=== PATIENT | male | born 1965 | race Caucasian/White ===

== ENCOUNTER 2018-07-27 12:10 | Inpatient (IN) ==
[2018-07-27] MEDS ORDERED: Isovue-370 500 ML BOTTLE IVP ONE (12:33)
[2018-07-27] MEDS ORDERED: 0.9 % Sodium Chloride 1,000 ML IVC ONE (12:34)
--- NOTE | 2018-07-27 12:39 | Emergency Department Note ---
Disposition Clinical Impression: Atrial fibrillation with RVR, Cough, Diverticulosis of colon Abdominal pain Qualifiers: Abdominal location: unspecified location Qualified Code(s): R10.9 - Unspecified abdominal pain Disposition: Admitted As Inpatient Condition: Fair Referrals: Daniel Zavala MD [Primary Care Provider] - Forms: ED Satisfaction Letter Time of Disposition: 15:02 General Adult HPI - General Chief complaint: ED Shortness of Breath/Dyspnea Stated complaint: A-fib Time Seen by Provider: 07/27/18 12:20 Source: patient, family Mode of arrival: ambulatory Limitations: no limitations Nursing Notes Reviewed: Yes Vital Signs Reviewed: Yes - History of Present Illness HPI Narrative: 53-year-old male with a history of hypertension presents for evaluation of A. fib. Patient states he been feeling short of breath with a nonproductive cough for the past 5 weeks. States he did see his primary care doctor 3 days ago and was prescribed prednisone antibiotics and a cough medicine. States that it did not seem to improve his symptoms. Patient does note dyspnea at rest and with exertion. Patient denies any palpitations or chest pain. No history of any known coronary artery disease. Patient also noted some lower abdominal pain started this morning. Patient has been having some diarrhea but no constipation. No nausea vomiting. Family states that the patient does get diaphoretic at times out of the blue. Patient is not any blood thinners. Pain Scale: 5 - Related Data Previous Rx's Medication Instructions Recorded Cephalexin [Keflex] 500 mg PO QID #40 capsule 09/06/17 Ibuprofen [Motrin] 800 mg PO Q8HR PRN #20 tablet 09/06/17 Mupirocin [Bactroban Oint] 22 appl TP BID #1 tube 09/06/17 Cetirizine HCl [Zyrtec] 10 mg PO QDPC #30 tablet 01/13/18 Levofloxacin [Levaquin] 750 mg PO QDPC #7 tablet 01/13/18 Allergies Allergy/AdvReac Type Severity Reaction Status Date / Time lisinopril AdvReac Cough Verified 01/13/18 10:49 All systems ED: reviewed and negative except as stated. Constitutional: Denies: fever Cardiovascular: Denies: chest pain Respiratory: Reports: cough, dyspnea. Denies: wheezes Gastrointestinal: Reports: abdominal pain, diarrhea. Denies: nausea, vomiting Past Medical History - Past Medical History Source: patient Medical history: Reports: hypertension Psychiatric history: Reports: no psych history - Social History Smoking Status: Never smoker Smokeless Tobacco Status: No Alcohol use: Reports: none Drug use: Reports: none Physical Exam - General Limitations: no limitations General appearance: alert, in no apparent distress - Head Head exam: atraumatic, normocephalic, normal inspection - Eye Eye exam: Present: normal appearance, PERRL, EOMI - ENT ENT exam: normal exam, mucous membranes moist - Neck Neck exam: Present: normal inspection - Chest Chest inspection: Present: normal inspection, symmetric chest wall rise - Respiratory Respiratory exam: Present: normal lung sounds bilaterally. Absent: respiratory distress - Cardiovascular Cardiovascular exam: Present: tachycardia, irregular rhythm. Absent: normal heart sounds - Abdominal Exam Abdominal exam: Present: soft, tenderness. Absent: guarding, rebound - Extremities Exam Extremities exam: Present: normal inspection. Absent: pedal edema - Back Exam Back exam: Present: normal inspection - Neurological Exam Neurological exam: Present: alert, oriented X3, CN II-XII intact - Skin Skin exam: Present: warm, dry, intact, normal color Course Course Narrative: Patient presents in A. fib RVR with a preserved blood pressure. Patient has no formal history of this. Patient will get rate controlled basic cardio pulmonary screening labs. Patient also get a CT of the chest abdomen pelvis given his history of recent travel as well as pain above and below the diaphragm. More concerned of PE then aortic dissection. - Reevaluation(s) Reevaluation #1: Patient's heart rate improved during the ED course. Time: 15:00 Vital Signs Temperature 98.0 F 07/27/18 12:14 Pulse Rate 155 07/27/18 12:14 Respiratory Rate 18 07/27/18 12:14 Blood Pressure 140/84 07/27/18 12:14 O2 Sat by Pulse Oximetry 98 07/27/18 12:14 Temperature 98.0 F 07/27/18 12:14 Pulse Rate 123 07/27/18 14:21 Respiratory Rate 21 07/27/18 14:21 Blood Pressure 114/97 07/27/18 14:21 O2 Sat by Pulse Oximetry 95 07/27/18 14:21 Oxygen Delivery Oxygen Delivery Room Air Medical Decision Making - [facility] Narrative Medical decision making narrative: Patient presented for concerns of cough and dyspnea. On exam the patient was found to be new onset A. fib RVR. Patient's been having a productive cough over the past 5 weeks. Patient also been feeling short of breath. Concerns that the cough may be secondary to early heart failure. Patient heart was controlled with diltiazem. Patient is also complaining of some lower abdominal pain with a nonsurgical abdomen. Patient CT scan of the chest abdomen pelvis was obtained which shows no evidence of dissection or PE. Also no evidence of any acute surgical pathology. Patient pain was treated. Patient was given potassium supplementation as well as magnesium. - Lab Data Lab results reviewed: Yes I reviewed the patient's lab results. Result diagrams: 07/27/18 12:28 07/27/18 12:28 Lab Results 07/27/18 07/27/18 07/27/18 Range/Units 12:28 12:28 12:28 WBC 12.3 H (4.3-11.1) K/mcL RBC 4.98 (4.19-5.50) M/mcL Hgb 14.5 (12.9-16.9) g/dL Hct 44.4 (37.5-50.1) % MCV 89.2 (83.0-100.0) fL MCH 29.1 (28.0-33.3) pg MCHC 32.7 (31.6-35.5) g/dL RDW 13.0 (11.5-14.5) % Plt Count 185 (140-400) K/mcL MPV 12.0 (9.4-12.4) fL Immature Gran % 0.5 (0-4) % Seg Neutrophils % 76.3 % Lymphocytes % 16.2 % Monocytes % 6.4 % Eosinophils % 0.3 % Basophils % 0.3 % Neutrophils # 9.4 H (1.6-8.9) K/mcL Lymphocytes # 2.0 (0.6-4.6) K/mcL Monocytes # 0.8 (0.0-1.3) K/mcL Eosinophils # 0.0 (0.0-0.6) K/mcL Basophils # 0.0 (0.0-0.2) K/mcL Sodium 141 (136-145) mEq/L Potassium 3.2 L (3.5-5.1) mEq/L Chloride 105 (98-107) mEq/L Carbon Dioxide 24 (23-29) mEq/L BUN 11 (6-20) mg/dL Creatinine 1.10 (0.70-1.30) mg/dL Est GFR ( Amer) > 60 (> 60) Est GFR (Non-Af Amer) > 60 (> 60) BUN/Creatinine Ratio 10 (6-26) Glucose 184 H (70-105) mg/dL Calculated Osmolality 296 (280-300) Lactic Acid (0.5-2.2) mmol/L Calcium 9.1 (8.6-10.3) mg/dL Total Bilirubin 0.8 (0.3-1.0) mg/dL Direct Bilirubin 0.3 H (0.0-0.2) mg/dL Indirect Bilirubin 0.5 (0.0-1.2) mg/dL AST 22 (13-39) Units/L ALT 28 (7-52) Units/L Alkaline Phosphatase 52 (34-104) Units/L Troponin I < 0.03 (< 0.04) ng/mL B-Natriuretic Peptide 305 H (Less than 100) pg/mL Serum Total Protein 7.1 (6.4-8.9) g/dL Albumin 4.3 (3.5-5.7) g/dL Globulin 2.8 (2.4-3.5) g/dL Albumin/Globulin Ratio 1.5 (1.1-2.2) TSH 1.867 (0.340-5.600) mcIU/mL Urine Color (Yellow) Urine Clarity (Clear) Urine pH (5.0-8.0) pH Units Ur Specific [place] (1.010-1.025) Urine Protein (Neg-Trace) mg/dL Urine Glucose (UA) (Normal) mg/dL Urine Ketones (Negative) mg/dL Urine Blood (Negative) Urine Nitrite (Negative) Urine Bilirubin (Negative) Urine Urobilinogen (Normal) mg/dL Ur Leukocyte Esterase (Negative) 07/27/18 07/27/18 07/27/18 Range/Units 12:50 13:20 13:24 WBC (4.3-11.1) K/mcL RBC (4.19-5.50) M/mcL Hgb (12.9-16.9) g/dL Hct (37.5-50.1) % MCV (83.0-100.0) fL MCH (28.0-33.3) pg MCHC (31.6-35.5) g/dL RDW (11.5-14.5) % Plt Count (140-400) K/mcL MPV (9.4-12.4) fL Immature Gran % (0-4) % Seg Neutrophils % % Lymphocytes % % Monocytes % % Eosinophils % % Basophils % % Neutrophils # (1.6-8.9) K/mcL Lymphocytes # (0.6-4.6) K/mcL Monocytes # (0.0-1.3) K/mcL Eosinophils # (0.0-0.6) K/mcL Basophils # (0.0-0.2) K/mcL Sodium (136-145) mEq/L Potassium (3.5-5.1) mEq/L Chloride (98-107) mEq/L Carbon Dioxide (23-29) mEq/L BUN (6-20) mg/dL Creatinine (0.70-1.30) mg/dL Est GFR ( Amer) (> 60) Est GFR (Non-Af Amer) (> 60) BUN/Creatinine Ratio (6-26) Glucose (70-105) mg/dL Calculated Osmolality (280-300) Lactic Acid 1.9 1.4 (0.5-2.2) mmol/L Calcium (8.6-10.3) mg/dL Total Bilirubin (0.3-1.0) mg/dL Direct Bilirubin (0.0-0.2) mg/dL Indirect Bilirubin (0.0-1.2) mg/dL AST (13-39) Units/L ALT (7-52) Units/L Alkaline Phosphatase (34-104) Units/L Troponin I (< 0.04) ng/mL B-Natriuretic Peptide (Less than 100) pg/mL Serum Total Protein (6.4-8.9) g/dL Albumin (3.5-5.7) g/dL Globulin (2.4-3.5) g/dL Albumin/Globulin Ratio (1.1-2.2) TSH (0.340-5.600) mcIU/mL Urine Color Yellow (Yellow) Urine Clarity Clear (Clear) Urine pH 6.0 (5.0-8.0) pH Units Ur Specific [place] < 1.005 L (1.010-1.025) Urine Protein Negative (Neg-Trace) mg/dL Urine Glucose (UA) Normal (Normal) mg/dL Urine Ketones Negative (Negative) mg/dL Urine Blood Negative (Negative) Urine Nitrite Negative (Negative) Urine Bilirubin Negative (Negative) Urine Urobilinogen Normal (Normal) mg/dL Ur Leukocyte Esterase Negative (Negative) - Radiology Data Radiology results reviewed: Yes I reviewed the patient's radiology results. CT Dissection 07/27/18 12:33 IMPRESSION: 1. No CTA evidence of dissection or aneurysm. Unremarkable CTA appearance of the vasculature. 2. Mild hepatic steatosis. Borderline to mild hepatomegaly. 3. Status post cholecystectomy. 4. Diverticulosis coli without CT evidence of acute diverticulitis. D/ / Bert Pritchard / Bert Pritchard Interpreting Provider: Bert Pritchard - EKG Data EKG #1 EKG attestation: Yes I reviewed and interpreted this EKG. Rate: tachycardia Rhythm: A.Fib [place]/QRS: normal When compared to previous EKG there are: changes noted Interpretation: nonspecific ST-T wave changes Critical Care Time Critical Care Time: Yes Total Critical Care Time: 35 Attestation: Critical care time 35 minutes managing patient's A. fib with rapid ventricular response. Kimberley.[email or web address] - Too Situation: Demographics Background: Presenting Complaint Assessment: Vital Signs, Course and respsone to treatment, Patient/Family Expectation Recommendation: Barrier(s) to disposition, Recommendation based on pending studies, treatments, or consults S.B.AAravind Report Given to: Hospitalist Too Repor Time: 14:59 Attestation Statement - Attestation Attestation: Patient was seen with resident physician. I reviewed the history, physical, assessment and plan, and agree with the findings. I also personally evaluated this patient and had [id number] time with this patient. 53-year-old male with a history of hypertension presents to the emergency department with cough and shortness of breath for weeks. Said the cough is gotten worse over the last couple days. Ultimately he was seen by his primary care doctor who prescribed a steroid pack, but he is failed to improve so he came in for additional evaluation and treatment. Patient has no history of cardiac disease, but his brother recently had cardiac surgery. He is also had some chest pain with this again worse with inspiration. Midsternal. Denies fevers chills nausea vomiting. Review of systems as above remainder negative. ED course. Vital signs initially showed tachycardia with stable blood pressure. ENT is unremarkable. Heart tachycardic regular rhythm. Lungs mild crackles heard throughout with slight increased work of breathing. No chest wall pain. Abdomen soft nontender. Extremities unremarkable. Neurologically intact. Skin no rashes. Psych normal. ED course. Patient's rate will be controlled. We will get a CTA of the chest to rule out dissection PE or other abnormality. Also his BNP was elevated but probably has some CHF as a result of having been in A. fib for some time. I think that is ultimately was causing his cough 2. Once rate was under control and lab and workup is complete patient will be admitted to the hospital service for additional evaluation and treatment. Asians rate was better controlled with Cardizem drip as well as a bolus of Cardizem. It was still elevated more than not we will like. Dissection study was done and was negative. Once this was completed he was started on anticoagulant therapy. We discussed the case with the hospitalist. They agreed to accept the patient for admission to the hospital. Critical care time 35 minutes. Agree with resident physician assessment and plan. Agree with the resident physician assessment and plan.
[2018-07-27 13:01] LABS: Basophils % 0.3 %; Eosinophils % 0.3 %; Hematocrit 44.4 % (37.5-50.1); Hemoglobin 14.5 g/dL (12.9-16.9); Immature Granulocytes % 0.5 % (0-4); Lymphocytes % 16.2 %; Mean Corpuscular HGB Conc 32.7 g/dL (31.6-35.5); Mean Corpuscular Hemoglobin 29.1 pg (28.0-33.3); Mean Corpuscular Volume 89.2 fL (83.0-100.0); Monocytes # 0.8 K/mcL (0.0-1.3); Monocytes % 6.4 %; Neutrophils # 9.4 K/mcL (1.6-8.9); Platelet Count 185 K/mcL (140-400); Red Blood Count 4.98 M/mcL (4.19-5.50); Segmented Neutrophils % 76.3 %; White Blood Count 12.3 K/mcL (4.3-11.1)
[2018-07-27 13:07] LABS: Alanine Aminotransferase 28 Units/L (7-52); Albumin 4.3 g/dL (3.5-5.7); Albumin/Globulin Ratio 1.5 (1.1-2.2); Alkaline Phosphatase 52 Units/L (34-104); Aspartate Amino Transferase 22 Units/L (13-39); BUN/Creatinine Ratio 10 (6-26); Bilirubin,Direct 0.3 mg/dL (0.0-0.2); Bilirubin,Indirect 0.5 mg/dL (0.0-1.2); Bilirubin,Total 0.8 mg/dL (0.3-1.0); Blood Urea Nitrogen 11 mg/dL (6-20); Calcium 9.1 mg/dL (8.6-10.3); Carbon Dioxide 24 mEq/L (23-29); Chloride 105 mEq/L (98-107); Globulin 2.8 g/dL (2.4-3.5); Glucose 184 mg/dL (70-105); Osmolality,Calculated 296 (280-300); Potassium 3.2 mEq/L (3.5-5.1); Sodium 141 mEq/L (136-145); Total Protein 7.1 g/dL (6.4-8.9); Troponin I < 0.03 ng/mL (< 0.04); eGFR For African Americans > 60 (> 60); eGFR For Non-African Americans > 60 (> 60)
[2018-07-27 13:20] LABS: Thyroid Stimulating Hormone 1.867 mcIU/mL (0.340-5.600)
[2018-07-27] MEDS ORDERED: Potassium Chloride Elixir 20 MEQ/15 ML UDC PO ONE (13:42)
[2018-07-27] MEDS ORDERED: *HR* FentaNYL (PF) 100 MCG/2 ML VIAL IVP ONE (13:49)
[2018-07-27 13:53] LABS: Bilirubin,Urine Negative (Negative); Blood,Urine Negative (Negative); Clarity,Urine Clear (Clear); Color,Urine Yellow (Yellow); Glucose,Urine (UA) Normal (Normal); Ketones,Urine Negative (Negative); Leukocyte Esterase,Urine Negative (Negative); Nitrite,Urine Negative (Negative); Protein,Urine Negative (Neg-Trace); Specific Gravity,Urine < 1.005 (1.010-1.025); Urobilinogen,Urine Normal (Normal)
[2018-07-27] MEDS ORDERED: *HR* Heparin 5,000 UNIT/ML VIAL IVP PRN ×2 (14:57)
[2018-07-27] MEDS ORDERED: *HR* Heparin 5,000 UNIT/ML VIAL IVP ONE (14:57)
[2018-07-27] MEDS: Heparin 25,000 UNIT/250 ML D5W 25,000 UNIT/250 ML IV.SOLN IVC SCH (15:44)
[2018-07-27] MEDS ORDERED: Naloxone 0.4 MG/ML INJ IVP PRN (15:46)
[2018-07-27 15:54] LABS: Magnesium 1.9 mg/dL (1.6-2.6)
--- NOTE | 2018-07-27 17:11 | Internal Med History&Physical ---
Date of Encounter: 07/27/18 Time of Encounter: 17:00 Internal Medicine - H&P: HPI Chief complaint: Persistent coughing and shortness of breath for about 4 weeks History of present illness: Mr. Murguia is a 53 year old male with pmh of hypertension presenting with cough for about 5 weeks. Patient says he previously had a cough while on lisnopril, but has been switched to losartan and has been tolerating it since. But for the past 5 weeks, he has been having a non resolviong cough. He went to his PCP who gave him some antibiotics and cough medicine, but his cough hasn't improved. He went back to urgent care today, and he said they measures his heart rate told him it was fast, and they did an EKG and told him he had to come to the ER. He denies any chest pain, fevers, chills or any other acute symptoms In the ER, he was noted to be in afib with RVR in the 160s, and he was started on a cardizem drip and heparin drip. He has no previous history of afib. His HR is presently in the 100s- 130s. He is being admitted for further management Past Med Surg Social Fam HX - Past Medical History Medical history: hypertension Psychiatric history: no psych history - Past Surgical History Additional surgical history: knee - Social History Smoking Status: Never smoker Smokeless Tobacco Status: No Alcohol use: none Drug use: none Internal Medicine - H&P: Meds Cephalexin [Keflex] 500 mg PO QID #40 capsule 09/06/17 [Rx] Losartan Potassium 50 mg PO DAILY 07/27/18 [History] Allergy/AdvReac Type Severity Reaction Status Date / Time lisinopril AdvReac Cough Verified 01/13/18 10:49 All Systems PM: A 10-system review of systems was performed and is negative for pertinent findings except as documented above in the HPI. - Constitutional Constitutional: no chills, no fever(s), no night sweats - EENT Eyes: no change in vision, no discharge, no pain, no photophobia Ears: no ear discharge, no ear pain, no tinnitus Nose, mouth and throat: no dysphagia, no nasal discharge, no neck pain, no sore throat - Cardiovascular Cardiovascular ROS IM: dyspnea, irregular heart rhythm, no chest pain, no diaphoresis, no lightheadedness, no palpitations, no syncope - Respiratory Respiratory: no cough, no dyspnea, no wheezing, no excessive phlegm production - Gastrointestinal Gastrointestinal: no abdominal pain, no diarrhea, no hematemesis, no hematochezia, no melena, no nausea, no vomiting - Musculoskeletal Musculoskeletal ROS IM: no numbness, no tingling - Integumentary Integumentary IM: no rash, no unusual bruising - Neurological Neurological ROS: no confusion, no convulsions, no focal weakness, no numbness, no tingling, no tremor(s) - Hematologic/Lymphatic Hematologic/Lymphatic: no easy bruising - Constitutional Vitals: Temp Pulse Resp BP Pulse Ox 98.0 F 123 21 114/97 95 07/27/18 12:14 07/27/18 14:21 07/27/18 14:21 07/27/18 14:21 07/27/18 14:21 Exam: NAD - Head Head exam: Present: atraumatic, normocephalic - Eye Eye exam: Present: PERRL, conjuntiva pink, sclera anicteric Pupils: Present: PERRL - Neck Neck exam general surgery: Present: supple, trachea midline. Absent: lympha denopathy - Respiratory Respiratory exam: Present: CTAB. Absent: accessory muscle use, rales, rhonchi, wheezes - Cardiovascular Cardiovascular exam: Present: irregular rhythm, RRR, +S1, +S2, tachycardia. Absent: diastolic murmur, gallop, rubs, systolic murmur - GI/Abdominal GI/Abdominal exam: Present: normal bowel sounds, soft, no peritoneal signs. Absent: distended, tenderness - Extremities Exam Extremities exam: Present: warm, radial pulses palpable and symmetrical. Absent: calf tenderness, cyanotic, pedal edema - Neurological Exam Neurological exam: Present: CN II-XII intact, oriented X3, no focal deficits. Absent: pronater drift, facial droop, speech deficit - Skin Skin exam: Present: dry, intact Internal Med - H&P Results - Labs CBC & Chem 7: 07/27/18 12:28 07/27/18 12:28 Labs: Short CBC 07/27/18 Range/Units 12:28 WBC 12.3 H (4.3-11.1) K/mcL Hgb 14.5 (12.9-16.9) g/dL Hct 44.4 (37.5-50.1) % Plt Count 185 (140-400) K/mcL Neutrophils # 9.4 H (1.6-8.9) K/mcL BMP 07/27/18 12:28 Sodium 141 Potassium 3.2 L Chloride 105 Carbon Dioxide 24 BUN 11 Creatinine 1.10 Glucose 184 H Calcium 9.1 Cardiac Enzymes 07/27/18 Range/Units 12:28 Troponin I < 0.03 (< 0.04) ng/mL Liver Function 07/27/18 Range/Units 12:28 Total Bilirubin 0.8 (0.3-1.0) mg/dL Direct Bilirubin 0.3 H (0.0-0.2) mg/dL AST 22 (13-39) Units/L ALT 28 (7-52) Units/L Alkaline Phosphatase 52 (34-104) Units/L Albumin 4.3 (3.5-5.7) g/dL Urine 07/27/18 Range/Units 13:20 Urine Color Yellow (Yellow) Urine Clarity Clear (Clear) Urine pH 6.0 (5.0-8.0) pH Units Ur Specific [place] < 1.005 L (1.010-1.025) Urine Protein Negative (Neg-Trace) mg/dL Urine Glucose (UA) Normal (Normal) mg/dL - Impressions ITS Impressions CT Dissection 07/27/18 12:33 IMPRESSION: 1. No CTA evidence of dissection or aneurysm. Unremarkable CTA appearance of the vasculature. 2. Mild hepatic steatosis. Borderline to mild hepatomegaly. 3. Status post cholecystectomy. 4. Diverticulosis coli without CT evidence of acute diverticulitis. D/ / Bert Pritchard / Bert Pritchard Interpreting Provider: Bert Pritchard - Assessment and Plan (1) Atrial fibrillation with RVR Current Visit: Yes Status: Acute Assessment and plan: Pt comes in with new onset afib with RVR of unknown onset, probably for about 5 weeks Started on cardizem and heparin drip. Will add amiodarone drip to regimen, if rate stays uncontrolled Will obtain 2D echo. Cardiology consulted and appreciate recs Replace electrolytes and obtain TSH (2) Cough Current Visit: Yes Status: Acute Assessment and plan: Possibly ARB induced cough which occurs, even though it's low incidence. CT chest negative. Obtain resp panel Hold losartan (3) Hypertension Current Visit: Yes Status: Acute Assessment and plan: Hold losartan for now Qualifiers: Qualified Code(s): I10 - Essential (primary) hypertension (4) Hypokalemia Current Visit: Yes Status: Acute Assessment and plan: Replace potassium (5) DVT prophylaxis Current Visit: Yes Status: Acute Assessment and plan: On heparin drip - Time Spent With Patient Total time spent is greater than 50% in coordination of care (as documented) at patient's floor/unit and/or counseling patient:
[2018-07-27] MEDS: GuaiFENesin Liq 200 MG/10 ML UDC PO SCH (18:26)
[2018-07-27] MEDS: Benzonatate 100 MG CAPSULE PO PRN (21:40)
[2018-07-28] MEDS: GuaiFENesin Liq 200 MG/10 ML UDC PO SCH ×2 (00:41→06:12)
[2018-07-28] MEDS: Heparin 25,000 UNIT/250 ML D5W 25,000 UNIT/250 ML IV.SOLN IVC SCH ×2 (06:31→23:17)
[2018-07-28 06:42] LABS: Basophils % 0.4 %; Eosinophils # 0.1 K/mcL (0.0-0.6); Eosinophils % 0.8 %; Hematocrit 41.3 % (37.5-50.1); Hemoglobin 13.3 g/dL (12.9-16.9); Immature Granulocytes % 0.6 % (0-4); Lymphocytes # 2.4 K/mcL (0.6-4.6); Lymphocytes % 21.8 %; Mean Corpuscular HGB Conc 32.2 g/dL (31.6-35.5); Mean Corpuscular Hemoglobin 28.9 pg (28.0-33.3); Mean Corpuscular Volume 89.8 fL (83.0-100.0); Mean Platelet Volume 12.2 fL (9.4-12.4); Monocytes # 0.8 K/mcL (0.0-1.3); Monocytes % 7.6 %; Neutrophils # 7.5 K/mcL (1.6-8.9); Platelet Count 180 K/mcL (140-400); Red Cell Distribution Width 13.2 % (11.5-14.5); Segmented Neutrophils % 68.8 %; White Blood Count 10.9 K/mcL (4.3-11.1)
[2018-07-28 07:00] LABS: Magnesium 2.2 mg/dL (1.6-2.6); Phosphorous 4.5 mg/dL (2.7-4.5)
--- NOTE | 2018-07-28 07:38 | Internal Med Progress Note ---
Hospitalist Progress Note - Encounter Date of Encounter: 07/28/18 Time of Encounter: 07:30 - Subjective Interval History: Seen by cardiology this am - Exam Vitals: Temp Pulse Resp BP Pulse Ox 98.6 F 100 18 116/87 95 07/28/18 03:33 07/28/18 03:33 07/28/18 03:33 07/28/18 03:33 07/28/18 03:33 Exam: General appearance: Present: A&O X 3, no acute distress Head exam: Present: normocephalic Respiratory exam: Present: CTAB. Absent: accessory muscle use, rales, rhonchi, wheezes Cardiovascular exam:Irregularly irregular, tachycardic GI/Abdominal exam: Soft, NT, ND, +BS Extremities exam: Absent: pedal edema Neurological exam: Present: alert, oriented X3, no focal deficits. Absent: altered - Assessment and Plan (1) Atrial fibrillation with RVR Current Visit: Yes Status: Acute Assessment and Plan: Pt comes in with new onset afib with RVR of unknown onset, probably for about 5 weeks Started on cardizem and heparin drip. Will add amiodarone drip to regimen, if rate stays uncontrolled Will obtain 2D echo. Cardiology consulted and appreciate recs Replace electrolytes and obtain TSH 07/28. Seen by cardiology this am and received one digoxin Planned for cardioversion in am if he stays in afib. TSH WNL (2) Cough Current Visit: Yes Status: Acute Assessment and Plan: Possibly ARB induced cough which occurs, even though it's low incidence. CT ch est negative. Obtain resp panel Hold losartan (3) Hypertension Current Visit: Yes Status: Acute Assessment and Plan: Hold losartan for now (4) Hypokalemia Current Visit: Yes Status: Acute Assessment and Plan: Replace potassium (5) DVT prophylaxis Current Visit: Yes Status: Acute Assessment and Plan: On heparin drip - Time Spent with Patient Total time spent is greater than 50% in coordination of care (as documented) at patient's floor/unit and/or counseling patient: Internal Medicine: Result - Labs CBC & Chem 7: 07/28/18 06:18 07/27/18 21:56 Labs: Short CBC 07/27/18 07/28/18 Range/Units 12:28 06:18 WBC 12.3 H 10.9 (4.3-11.1) K/mcL Hgb 14.5 13.3 (12.9-16.9) g/dL Hct 44.4 41.3 (37.5-50.1) % Plt Count 185 180 (140-400) K/mcL Neutrophils # 9.4 H 7.5 (1.6-8.9) K/mcL BMP 07/27/18 07/27/18 12:28 21:56 Sodium 141 Potassium 3.2 L 3.4 L Chloride 105 Carbon Dioxide 24 BUN 11 Creatinine 1.10 Glucose 184 H Calcium 9.1 Cardiac Enzymes 07/27/18 Range/Units 12:28 Troponin I < 0.03 (< 0.04) ng/mL Liver Function 07/27/18 Range/Units 12:28 Total Bilirubin 0.8 (0.3-1.0) mg/dL Direct Bilirubin 0.3 H (0.0-0.2) mg/dL AST 22 (13-39) Units/L ALT 28 (7-52) Units/L Alkaline Phosphatase 52 (34-104) Units/L Albumin 4.3 (3.5-5.7) g/dL Urine 07/27/18 Range/Units 13:20 Urine Color Yellow (Yellow) Urine Clarity Clear (Clear) Urine pH 6.0 (5.0-8.0) pH Units Ur Specific [place] < 1.005 L (1.010-1.025) Urine Protein Negative (Neg-Trace) mg/dL Urine Glucose (UA) Normal (Normal) mg/dL - Impressions Impressions CT Dissection 07/27/18 12:33 IMPRESSION: 1. No CTA evidence of dissection or aneurysm. Unremarkable CTA appearance of the vasculature. 2. Mild hepatic steatosis. Borderline to mild hepatomegaly. 3. Status post cholecystectomy. 4. Diverticulosis coli without CT evidence of acute diverticulitis. D/ / Bert Pritchard / Bert Pritchard Interpreting Provider: Bert Pritchard Consult Discharge Plan - Plan Referrals: Daniel Zavala MD [Primary Care Provider] - ___ (3) Hypertension Qualifiers: Qualified Code(s): I10 - Essential (primary) hypertension
[2018-07-28] MEDS ORDERED: GuaiFENesin Liq 200 MG/10 ML UDC PO PRN (07:45)
--- NOTE | 2018-07-28 10:02 | Cardiology Consult Note ---
Date of Encounter: 07/28/18 Time of Encounter: 10:00 Assessment and Plan (1) Atrial fibrillation with RVR Current Visit: Yes Status: Acute CHADSvasc 1. Discussed A/R/B of NOAC/coumadin/aspirin with them and they are leaning towards taking NOAC. Continue heparin and cardizem. Add metoprolol if continued RVR and BP will tolerate. Possible DOMINICK/DCCV tomorrow if still in AF (2) Hypertension Current Visit: Yes Status: Acute controlled Qualifiers: Qualified Code(s): I10 - Essential (primary) hypertension Discussion w patient/family: The assessment and plan as outlined above was discussed with the patient and/or family members who expressed understanding and agreement. All questions were answered. Thank you for involving us in the care of your patient. Please call with any questions. History of Present Illness Consult date: 07/28/18 Consult reason: AF RVR Chief complaint: cough History of present illness: Mr. Murguia is a 53 year old male with no previous cardiac history presenting with unresolving dry cough for several weeks despite changing from lisinopril to ARB. He was seen in urgent care and found to have AF RVR on EKG admitted here started on cardizem and heparin. He notes dyspnea preceded the cough but is worse when coughing. He notes no palpitations, chest/jaw/arm discomfort or syncope. He does note daytime sleepiness and says he snores significantly at night. He was recently treated with keflex and steroids. Past Med Surg Social Fam HX - Past Medical History Medical history: hypertension Additional medical history: pneumonia Psychiatric history: no psych history - Past Surgical History Surgical History: cholecystectomy Additional surgical history: meniscus repair right knee - Social History Smoking Status: Never smoker Smokeless Tobacco Status: No Alcohol use: none Drug use: none - Family History Mother Hx Family Cardiac Disorders: Yes (HTN) Medications and Allergies Cephalexin [Keflex] 500 mg PO QID #40 capsule 09/06/17 [Rx] Losartan Potassium 50 mg PO DAILY 07/27/18 [History] Allergy/AdvReac Type Severity Reaction Status Date / Time lisinopril AdvReac Cough Verified 01/13/18 10:49 All Systems Review: The remainder of the systems were reviewed and are negative - Constitutional Constitutional: no chills, no fever(s) - EENT Eyes: no blurred vision, no loss of vision Nose, mouth and throat: no odynophagia, no throat swelling - Cardiovascular Cardiovascular: irregular heart rhythm, rapid heart rate - Respiratory Respiratory: cough, no hemoptysis, no wheezing - Gastrointestinal Gastrointestinal: no hematemesis, no hematochezia - Genitourinary Genitourinary: no hematuria, no nocturia - Musculoskeletal Musculoskeletal: no arthralgias, no myalgias - Integumentary Integumentary: no erythema, no unusual bruising - Neurological Neurological: no syncope, no tingling - Psychiatric Psychiatric: no hallucinations, no panic attacks - Hematological/Lymphatic Hematologic/Lymphatic: no easy bleeding, no easy bruising Physical Examination Vital Signs, Last 4 Hours Temp Pulse Resp BP Pulse Ox 07/28/18 07:47 98.5 F 97 16 112/78 94 General: Conversant HEENT: Atraumatic Neck: No JVD Cardiac: Other (irr irr s1 s2) Lungs: Other (bibasilar crackles) Neuro: Alert and responsive Abdomen: Soft Skin: No rashes noted on visualized skin Musculoskeletal: No Chest Wall Tenderness Extremities: No Edema Results 07/28/18 06:18 07/27/18 21:56 Lab Results 07/27/18 07/27/18 07/27/18 12:28 12:28 12:28 WBC 12.3 H Hgb 14.5 Hct 44.4 Plt Count 185 Sodium 141 Potassium 3.2 L Chloride 105 Carbon Dioxide 24 BUN 11 Creatinine 1.10 Glucose 184 H Calcium 9.1 Magnesium 1.9 Total Bilirubin 0.8 AST 22 ALT 28 Alkaline Phosphatase 52 Troponin I < 0.03 B-Natriuretic Peptide 305 H TSH 1.867 07/27/18 07/28/18 07/28/18 21:56 06:18 06:18 WBC 10.9 Hgb 13.3 Hct 41.3 Plt Count 180 Sodium Potassium 3.4 L Chloride Carbon Dioxide BUN Creatinine Glucose Calcium Magnesium 2.2 Total Bilirubin AST ALT Alkaline Phosphatase Troponin I B-Natriuretic Peptide TSH 07/28/18 06:18 WBC Hgb Hct Plt Count Sodium Potassium Chloride Carbon Dioxide BUN Creatinine Glucose Calcium Magnesium Total Bilirubin AST ALT Alkaline Phosphatase Troponin I B-Natriuretic Peptide 86 TSH - EKG Interpretation EKG results cardiology: personally reviewed (af rvr) Consult Discharge Plan - Plan Referrals: Daniel Zavala MD [Primary Care Provider] -
[2018-07-28] MEDS: GuaiFENesin/Dextromethorphan TABLET PO SCH ×2 (10:26→20:59)
[2018-07-28] MEDS ORDERED: *HR* Digoxin 0.5 MG/2 ML AMPUL IVP ONE (11:07)
[2018-07-28] MEDS: Benzonatate 100 MG CAPSULE PO PRN (17:02)
--- NOTE | 2018-07-28 23:02 | Electrocardiograph Report ---
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
[2018-07-29] MEDS: GuaiFENesin/Dextromethorphan TABLET PO SCH ×2 (07:55→21:10)
[2018-07-29 10:09] LABS: Basophils % 0.4 %; Eosinophils # 0.1 K/mcL (0.0-0.6); Eosinophils % 1.1 %; Hematocrit 42.9 % (37.5-50.1); Hemoglobin 14.1 g/dL (12.9-16.9); Immature Granulocytes % 0.6 % (0-4); Lymphocytes # 2.1 K/mcL (0.6-4.6); Lymphocytes % 21.7 %; Mean Corpuscular HGB Conc 32.9 g/dL (31.6-35.5); Mean Corpuscular Hemoglobin 29.4 pg (28.0-33.3); Mean Corpuscular Volume 89.4 fL (83.0-100.0); Mean Platelet Volume 11.8 fL (9.4-12.4); Monocytes # 0.7 K/mcL (0.0-1.3); Monocytes % 7.4 %; Neutrophils # 6.8 K/mcL (1.6-8.9); Platelet Count 185 K/mcL (140-400); Red Cell Distribution Width 13.1 % (11.5-14.5); Segmented Neutrophils % 68.8 %; White Blood Count 9.9 K/mcL (4.3-11.1)
--- NOTE | 2018-07-29 10:11 | Event Note ---
Date of Encounter: 07/29/18 Time of Encounter: 10:08 - Cardiology Event Note TTE resulted--Atrial fibrillation. HR 90s to 100s. LVEF 40-45%. Normal LV chamber size. Mild cLVH. Mild global LV systolic dysfunction. Indeterminate diastolic function. Normal RV structure and function. Mild-moderate MR. No evidence of phtn. 12 hr tele AVG HR 92 on cardizem gtt at 15mg/hr. Given mildly reduced EF, recommend DOMINICK/DCCV in attempt to restore SR. Suspect CMP is tachycardia induced. Discussed with Dr. Dumas. Will plan to recheck TTE as outpt once in SR before proceeding with ischemic eval. DOMINICK/DCCV today. R/B/A discussed and pt agrees to proceed. Will rivera check NOAC.
[2018-07-29 10:24] LABS: BUN/Creatinine Ratio 11 (6-26); Blood Urea Nitrogen 12 mg/dL (6-20); Calcium 9.2 mg/dL (8.6-10.3); Carbon Dioxide 26 mEq/L (23-29); Chloride 107 mEq/L (98-107); Glucose 101 mg/dL (70-105); Magnesium 2.2 mg/dL (1.6-2.6); Osmolality,Calculated 292 (280-300); Potassium 3.9 mEq/L (3.5-5.1); Sodium 141 mEq/L (136-145); eGFR For African Americans > 60 (> 60); eGFR For Non-African Americans > 60 (> 60)
[2018-07-29] MEDS ORDERED: 0.9 % Sodium Chloride 500 ML IVC ONE (10:47)
[2018-07-29] MEDS ORDERED: Lidocaine Viscous Oral Soln 15 ML SOLUTION MM PRN (10:47)
[2018-07-29] MEDS: *HR* Midazolam HCl 5 MG/5 ML VIAL IVP PRN ×2 (11:45→11:50)
[2018-07-29] MEDS: *HR* FentaNYL (PF) 100 MCG/2 ML VIAL IVP PRN ×2 (11:45→11:50)
--- NOTE | 2018-07-29 12:16 | Event Note ---
Date of Encounter: 07/29/18 Time of Encounter: 12:15 - Cardiology Event Note Heavy smoke in [place] visualized, at this point risk benefit favors holding off on DCCV. Will continue chronic AC and possible DCCV later if necessary (ie if cannot get rate controlled or severely limiting symptoms). Continue rate control strategy and heparin, transition to xarelto today.
--- NOTE | 2018-07-29 13:51 | Internal Med Progress Note ---
Hospitalist Progress Note - Encounter Date of Encounter: 07/29/18 Time of Encounter: 13:50 - Subjective Interval History: I have seen and evaluated the patient at bedside. Patient denies any complains. denies chest pain, shortness of breath or abdominal pain. reports a non- productive cough. denies diarrhea or abdominal pain. - Exam Vitals: Temp Pulse Resp BP Pulse Ox 97.7 F 72 18 118/82 92 07/29/18 11:26 07/29/18 12:30 07/29/18 12:30 07/29/18 12:30 07/29/18 11:26 Exam: Vitals: Reviewed General: Alert and oriented x4. In no distress Skin: Normal color, no rash, no lesions. HEENT: EOM, pupils equal, round and reactive. Cardiovascular: Irregularly, irregular, normal S1 & S2, no rubs, murmurs or gallops. Lungs: CTA b/l, no wheezes or crackles. Abdomen: Obese, soft, non-tender, no rigidity. Extremities: No edema. Neurological: Normal cognition and motor skills. Rest of the physical exam is non contributory - Assessment and Plan (1) Atrial fibrillation with RVR Current Visit: Yes Status: Acute Assessment and Plan: patient on a heparin drip. cardizem drip to titrate per protocol. started on diltiazem 360mg/PO daily per cardiology recommendations. metoprolol 25mg/PO daily. unable to undergo DCCV due to Heavy smoke in [place] visualized. cardiology recommendations appreciated. (2) Hypertension Current Visit: Yes Status: Chronic Assessment and Plan: BP is well controlled. Patient is on diltiazem and metoprolol. (3) Hypokalemia Current Visit: Yes Status: Resolved (4) Diverticulosis of colon Current Visit: Yes Status: Chronic DVT Prophylaxis: On a heparin drip. - Summary of Assessment and Plan Summary of Assessment and Plan: Patient to remain in the hospital due to A.fib with RvR on a cardizem drip. potential discharge tomorrow. - Time Spent with Patient Total time spent is greater than 50% in coordination of care (as documented) at patient's floor/unit and/or counseling patient: Greater than 35 minutes (40) Plan of Care Discussed with: patient (and the nurse.) Internal Medicine: Result - Labs CBC & Chem 7: 07/29/18 08:55 07/29/18 08:55 Labs: Short CBC 07/29/18 Range/Units 08:55 WBC 9.9 (4.3-11.1) K/mcL Hgb 14.1 (12.9-16.9) g/dL Hct 42.9 (37.5-50.1) % Plt Count 185 (140-400) K/mcL Neutrophils # 6.8 (1.6-8.9) K/mcL BMP 07/29/18 08:55 Sodium 141 Potassium 3.9 Chloride 107 Carbon Dioxide 26 BUN 12 Creatinine 1.10 Glucose 101 Calcium 9.2 Consult Discharge Plan - Plan Referrals: Daniel Zavala MD [Primary Care Provider] - 08/07/18 1:30 pm (2) Hypertension Qualifiers: Hypertension type: unspecified Qualified Code(s): I10 - Essential (primary) hypertension
[2018-07-29] MEDS: Diltiazem CD (24hr) 180 MG CAPSULE PO SCH (14:16)
[2018-07-29] MEDS: Metoprolol XL (24 HR) Succ 25 MG TAB.ER.24H PO SCH (14:16)
[2018-07-29] MEDS ORDERED: *HR* Rivaroxaban 10 MG TABLET PO SCH (17:00)
[2018-07-29] MEDS: Heparin 25,000 UNIT/250 ML D5W 25,000 UNIT/250 ML IV.SOLN IVC SCH (21:23)
[2018-07-30 04:59] LABS: Basophils % 0.2 %; Eosinophils # 0.1 K/mcL (0.0-0.6); Eosinophils % 1.2 %; Hematocrit 42.5 % (37.5-50.1); Hemoglobin 13.9 g/dL (12.9-16.9); Immature Granulocytes % 0.3 % (0-4); Lymphocytes # 1.7 K/mcL (0.6-4.6); Lymphocytes % 18.4 %; Mean Corpuscular HGB Conc 32.7 g/dL (31.6-35.5); Mean Corpuscular Hemoglobin 29.1 pg (28.0-33.3); Mean Corpuscular Volume 88.9 fL (83.0-100.0); Mean Platelet Volume 11.6 fL (9.4-12.4); Monocytes # 0.7 K/mcL (0.0-1.3); Monocytes % 8.2 %; Neutrophils # 6.5 K/mcL (1.6-8.9); Platelet Count 169 K/mcL (140-400); Red Blood Count 4.78 M/mcL (4.19-5.50); Red Cell Distribution Width 12.5 % (11.5-14.5); Segmented Neutrophils % 71.7 %; White Blood Count 9.1 K/mcL (4.3-11.1)
[2018-07-30 05:20] LABS: BUN/Creatinine Ratio 12 (6-26); Blood Urea Nitrogen 13 mg/dL (6-20); Carbon Dioxide 29 mEq/L (23-29); Chloride 104 mEq/L (98-107); Glucose 107 mg/dL (70-105); Magnesium 2.1 mg/dL (1.6-2.6); Osmolality,Calculated 293 (280-300); Phosphorous 4.1 mg/dL (2.7-4.5); Potassium 3.7 mEq/L (3.5-5.1); Sodium 141 mEq/L (136-145); eGFR For African Americans > 60 (> 60); eGFR For Non-African Americans > 60 (> 60)
[2018-07-30 07:20] VITALS: BP 118/86
[2018-07-30] MEDS: Diltiazem CD (24hr) 180 MG CAPSULE PO SCH (08:16)
[2018-07-30] MEDS: GuaiFENesin/Dextromethorphan TABLET PO SCH (08:16)
[2018-07-30] MEDS: Metoprolol XL (24 HR) Succ 25 MG TAB.ER.24H PO SCH (08:16)
[2018-07-30] MEDS ORDERED: Metoprolol XL (24 HR) Succ 25 MG TAB.ER.24H PO ONE (08:59)
--- NOTE | 2018-07-30 09:06 | Discharge Summary ---
Orders not resulted at time of discharge: Pending orders 07/31/18 04:00 Basic Metabolic Panel AM 0400 CBC [Complete Blood Count] [HEME] AM 0400 Magnesium AM 0400 Phosphorous AM 0400 08/01/18 04:00 Basic Metabolic Panel AM 0400 CBC [Complete Blood Count] [HEME] AM 0400 Magnesium AM 0400 Phosphorous AM 0400 08/02/18 04:00 Basic Metabolic Panel AM 0400 CBC [Complete Blood Count] [HEME] AM 0400 Magnesium AM 0400 Phosphorous AM 0400 08/03/18 04:00 Basic Metabolic Panel AM 0400 CBC [Complete Blood Count] [HEME] AM 0400 Magnesium AM 0400 Phosphorous AM 0400 Date of Encounter: 07/30/18 Time of Encounter: 09:05 - Discharge Diagnosis (1) Atrial fibrillation with RVR Priority: Primary Status: Resolved (2) Hypertension Priority: Secondary Status: Chronic Qualifiers: Hypertension type: unspecified Qualified Code(s): I10 - Essential (primary) hypertension (3) Hypokalemia Priority: Secondary Status: Resolved (4) Diverticulosis of colon Priority: Secondary Status: Chronic Hospital course: Mr. Murguia is a 53 year old male 53 year old male with pmh of hypertension presenting with cough for about 5 weeks. Patient says he previously had a cough while on lisnopril, but has been switched to losartan and has been tolerating it since. But for the past 5 weeks, he has been having a non resolving cough. In the ER, he was noted to be in afib with RVR in the 160s, and he was started on a cardizem drip and heparin drip. Cardiology consulted. Cardiology attempted DCCV but not preformed due to heavy smoke visualized in the [place]. Cardiology recommended to start the patient on cardizem and metoprolol. HR has been controlled on oral medications, started on xarelto for secondary stroke prevention. Patient is hemodynamically stable to be discharged. Recommended to discontinue losartan and to follow up with cardiology within a week of hospital discharge. - Time Spent with Patient Total time spent providing and/or coordinating discharge services: Time spent: Greater than 30 minutes (35) - Discharge Medications Prescriptions: New Diltiazem CD (24hr) [Cardizem CD] 360 mg PO DAILY 30 Days #30 cap.er.24h Metoprolol XL (24 HR) Succ [Toprol Xl] 25 mg PO DAILY 30 Days #30 tab.er.24h Rivaroxaban [Xarelto] 20 mg PO 1700 30 Days #30 tablet Continued Benzonatate 100 mg PO TID PRN PRN Reason: Cough Discontinued Losartan Potassium [Cozaar] 50 mg PO DAILY cephALEXin [Keflex] 250 mg PO Q6H Home Medications: Benzonatate 100 mg PO TID PRN 07/29/18 [History] Diltiazem CD (24hr) [Cardizem CD] 360 mg PO DAILY 30 Days #30 cap.er.24h 07/30/18 [Rx] Metoprolol XL (24 HR) Succ [Toprol Xl] 25 mg PO DAILY 30 Days #30 tab.er.24h 07/30/18 [Rx] Rivaroxaban [Xarelto] 20 mg PO 1700 30 Days #30 tablet 07/30/18 [Rx] Allergies/Adverse Reactions: Allergy/AdvReac Type Severity Reaction Status Date / Time lisinopril AdvReac Cough Verified 01/13/18 10:49 Date of admission: 07/28/18 16:57 Primary care physician: Daniel Zavala MD Consults: 07/27/18 16:11 Consult to Cardiology [CONS] Routine Comment: Consulting Provider: Cardiology Sweta Reason for Consult: afib with RVR Call Completed: No - Constitutional Vitals: Temp Pulse Resp BP Pulse Ox 98.8 F 87 16 118/86 95 07/30/18 07:19 07/30/18 08:18 07/30/18 07:19 07/30/18 07:19 07/30/18 07:19 Exam: Vitals: Reviewed General: Alert and oriented x4. In no distress Cardiovascular: Irregularly, irregular, normal S1 & S2, no rubs, murmurs or gallops. Lungs: CTA b/l, no wheezes or crackles. Abdomen: Obese, soft, non-tender, no rigidity. NABS in all 4 quadrants. Extremities: No edema. Neurological: Normal cognition and motor skills. Rest of the physical exam is non contributory - Patient Status Disposition: Home, Self-Care Condition: Good Functional capacity at discharge: independent ambulation Overall status at discharge: patient is back to baseline - Discharge Instructions Follow Up With: Daniel Zavala MD [Primary Care Provider] - 08/07/18 1:30 pm - Diet and Activity Activity: resume usual activities as tolerated Diet: low salt diet
--- NOTE | 2018-07-30 09:13 | Electrocardiograph Report ---
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
--- NOTE | 2018-07-30 10:08 | Cardiology Progress Note ---
Date of Encounter: 07/30/18 Time of Encounter: 10:06 Assessment and Plan (1) Atrial fibrillation with RVR Current Visit: Yes Status: Resolved Presented A-Fib RVR, new diagnosis. Now on PO Cardizem CD 360mg daily and Toprol XL 25mg daily. 12 hr tele AVG HR 89, A-Fib. Rate controlled. TTE LVEF 40-45%. Mild cLVH. Mild global LV systolic dysfunction. Normal RV structure and function. Mild-moderate MR. No evidence of phtn. Given mildly reduced EF, recommended DOMINICK/DCCV in attempt to restore SR. Suspect CMP is tachycardia induced. There was Heavy smoke in [place] visualized, at this point risk benefit favors holding off on DCCV until on AC for 1 month. KARSON [id number] 1 (HTN). [employer] rivera check $75/month. Free 30 day card given. Continue rate control and AC and will coordinate outpt follow-up with Dr. Amarjit Doyle in A-Fib clinic. Cardiology signing off. Reconsult PRN. (2) Cardiomyopathy Current Visit: Yes Status: Acute LVEF 40-45%, global. Suspect CMP is tachycardia induced. Discussed with Dr. Dumas. Will plan to recheck TTE as outpt once rate controled or in SR, then determine if ischemic eval is warranted. Euvolemic on exam. CHF teaching discussed--2L fluid and Na restriction. Qualifiers: Cardiomyopathy type: unspecified Qualified Code(s): I42.9 - Cardiomyopathy, unspecified Discussion w patient/family: The assessment and plan as outlined above was discussed with the patient and/or family members who expressed understanding and agreement. All questions were answered. Thank you for involving us in the care of your patient. Please call with any questions. I will discuss all the above with Dr. Dumas and make changes as necessary. Subjective Principal diagnosis: A-Fib Interval history: No complaints this AM. 12 hr tele AVG HR 89, A-Fib. Objective Vital Signs, Last 4 Hours Temp Pulse Resp BP Pulse Ox 07/30/18 08:18 87 07/30/18 08:15 102 18 94 07/30/18 07:19 98.8 F 81 16 118/86 95 Vital Signs Temp Pulse Resp BP Pulse Ox 07/30/18 08:18 87 07/30/18 08:15 102 18 94 07/30/18 07:19 98.8 F 81 16 118/86 95 07/30/18 04:34 98.7 F 84 16 130/96 97 07/30/18 04:00 86 07/30/18 01:41 97.8 F 88 16 123/74 94 07/30/18 00:00 86 07/29/18 20:15 99.0 F 81 16 124/71 93 07/29/18 20:00 86 07/29/18 17:30 84 18 93 07/29/18 16:25 98.4 F 82 18 123/72 95 07/29/18 15:25 18 07/29/18 14:45 84 18 130/75 07/29/18 13:45 72 18 118/82 07/29/18 11:26 97.7 F 96 20 140/109 92 07/29/18 10:30 95 18 94 Intake and Output 07/29/18 07/30/18 07/30/18 23:59 07:59 15:59 Intake Total 840 / 1126 0 / 120 120 / 120 Output Total 400 / 950 0 / 0 Balance 440 / 176 0 / 120 120 / 120 Intake: Oral 840 / 840 0 / 120 120 / 120 Output: Urine 400 / 950 0 / 0 Other: Meal Dinner Breakfast Percent of Meal Consumed 100% 100% General: Conversant, No Apparent Distress HEENT: Atraumatic, Normocephaly, Mucus Membranes Moist Neck: No JVD, Normal carotid pulses Cardiac: Other (irregularly irregular) Lungs: Normal Breath Sounds, No Wheeze, Rales, Rhonchi Neuro: Alert and responsive, No focal deficits noted Abdomen: Soft, Non-Tender Skin: No rashes noted on visualized skin Musculoskeletal: No Chest Wall Tenderness Extremities: No Clubbing, No Cyanosis, No Edema, Normal Pulses Results 07/30/18 04:32 07/30/18 04:32 Lab Results 07/29/18 07/29/18 07/30/18 08:55 08:55 04:32 WBC 9.9 9.1 Hgb 14.1 13.9 Hct 42.9 42.5 Plt Count 185 169 Sodium 141 Potassium 3.9 Chloride 107 Carbon Dioxide 26 BUN 12 Creatinine 1.10 Glucose 101 Calcium 9.2 Magnesium 2.2 07/30/18 04:32 WBC Hgb Hct Plt Count Sodium 141 Potassium 3.7 Chloride 104 Carbon Dioxide 29 BUN 13 Creatinine 1.13 Glucose 107 H Calcium 9.0 Magnesium 2.1 Short CBC 07/30/18 07/29/18 Range/Units 04:32 08:55 WBC 9.1 9.9 (4.3-11.1) K/mcL Hgb 13.9 14.1 (12.9-16.9) g/dL Hct 42.5 42.9 (37.5-50.1) % Plt Count 169 185 (140-400) K/mcL Neutrophils # 6.5 6.8 (1.6-8.9) K/mcL BMP 07/30/18 07/29/18 Range/Units 04:32 08:55 Sodium 141 141 (136-145) mEq/L Potassium 3.7 3.9 (3.5-5.1) mEq/L Chloride 104 107 (98-107) mEq/L Carbon Dioxide 29 26 (23-29) mEq/L BUN 13 12 (6-20) mg/dL Creatinine 1.13 1.10 (0.70-1.30) mg/dL Glucose 107 H 101 (70-105) mg/dL Calcium 9.0 9.2 (8.6-10.3) mg/dL Active Medications Benzonatate (Tessalon) 100 mg PO TID PRN PRN Reason: Cough Stop: 01/26/19 21:30 Last Admin: 07/28/18 17:02 Dose: 100 mg Documented by: Diltiazem HCl (Cardizem Cd) 360 mg PO DAILY [facility] Stop: 01/28/19 12:16 Last Admin: 07/30/18 08:16 Dose: 360 mg Documented by: Rastaaifenesin (Mucinex Dm) 1 each PO BID [facility] Stop: 01/27/19 09:01 Last Admin: 07/30/18 08:16 Dose: 1 each Documented by: Rastaaifenesin (Robitussin Liq) 200 mg PO Q6HR PRN PRN Reason: Cough Stop: 01/26/19 18:01 Metoprolol Succinate (Toprol Xl) 25 mg PO DAILY [facility] Stop: 01/30/19 09:01 Naloxone HCl (Narcan) 0.4 mg IVP Q2MPRN PRN PRN Reason: SEE COMMENTS Stop: 01/26/19 15:47 Rivaroxaban (Xarelto) 20 mg PO 1700 [facility] Stop: 01/28/19 17:01 Last Admin: 07/29/18 17:37 Dose: 20 mg Documented by: - Imaging and Cardiology Echo: report reviewed - EKG Interpretation EKG results cardiology: other (12 hr tele AVG HR 89, A-Fib) Consult Discharge Plan - Plan Referrals: Daniel Zavala MD [Primary Care Provider] - 08/07/18 1:30 pm Prescriptions: Diltiazem CD (24hr) [Cardizem CD] 360 mg PO DAILY 30 Days #30 cap.er.24h Metoprolol XL (24 HR) Succ [Toprol Xl] 25 mg PO DAILY 30 Days #30 tab.er.24h Rivaroxaban [Xarelto] 20 mg PO 1700 30 Days #30 tablet
[2018-07-31] MEDS ORDERED: Metoprolol XL (24 HR) Succ 25 MG TAB.ER.24H PO SCH ×2 (09:00)
== END 2018-07-30 11:15 | disposition home or self-care (01) | DRG 310 ==
LOC: 2ANU 12:10 → EMEROOARM 12:10 → 2NNU 19:25 → SUATTDRO 07-28 16:57
PROVIDERS: ADMIT Internal Medicine Nephrology; ATTEND Internal Medicine